=== PATIENT | male | born 1990 | race Caucasian/White ===

== ENCOUNTER 2020-12-25 19:20 | Emergency (ER) | payer MEDICAID ==
[~2020-12-25] VITALS: Ht 170.2 cm; Wt 77.3 kg
[2020-12-26] VITALS: BP 111/80
[2020-12-26] MEDS ORDERED: PERTUSS(ACELL),DIPH,TET VAC/PF 0.5 ML SYRINGE IM. ONE (00:15)
[2020-12-26] MEDS ORDERED: DOXYCYCLINE HYCLATE 100 MG TABLET PO ONE (00:15)
[2020-12-26] MEDS ORDERED: HYDROCODONE/ACETAMINOPHEN 5-325 MG TABLET PO ONE (00:15)
== END 2020-12-26 00:48 | disposition home or self-care (01) ==
LOC: EMS 19:24
DX: S70.352A Superficial foreign body, left thigh, initial encounter (principal); F19.90 Other psychoactive substance use, unspecified, uncomplicated; Z59.0 Homelessness; W34.010A Accidental discharge of airgun, initial encounter; Y93.89 Activity, other specified; Y92.89 Other specified places as the place of occurrence of the external cause; Y99.8 Other external cause status
CPT/HCPCS: 72170; 73552; 90471; 90715; 99284